=== PATIENT | female | born 1990 | race Caucasian/White ===

== ENCOUNTER 2018-10-29 06:35 | Emergency (ER) | payer OTHER ==
[~2018-10-29] VITALS: Ht 157.5 cm; Wt 68.0 kg
[~2018-10-29 06:35] MED LIST: ALBU90OI; ALBU90OI INH; ALBU90OI6 INH; ALBU90OI61 INH; ALPR.5 PO; AMOX250 PO; AMOX500 PO; AZIT250 PO; AZIT500 PO; Amoxicillin500 MG PO; BENZ100A PO; CIPR500 PO; CODGUAEL PO; DOCU100 PO; DOXY100 PO; FLUSAL2505; FLUSAL2505 IH; FLUT110OIA INH; HYDACE5 PO; IBUP800 PO; Naprosyn500 MG PO; ONDA4 PO; OXYACE5T PO; PENVK500 PO; PHENA200 PO; PRED10 PO; PRED20 PO; PROM25 PO; PSEU120ER PO; Prednisone20 MG PO; SERT25 PO; SPACER IH; SULTRIDS PO; Sudogest60 MG PO; TRAZ50 PO; TYLENOL COLD; Ultram50 MG PO; VENL75ER PO; VITAMINS; Veetids 500500 MG PO; Verotin-Gr Cap1 EACH PO
[2018-10-29] MEDS ORDERED: GABA100 (07:31)
[2018-10-29] MEDS ORDERED: HYDR1TAB94 (07:31)
[2018-10-29] MEDS ORDERED: ONDA4ODT MM (08:48)
== END 2018-10-29 09:19 | disposition home or self-care (01) ==
LOC: ER 06:35
DX: F41.9 Anxiety disorder, unspecified (principal); R11.2 Nausea with vomiting, unspecified; F31.9 Bipolar disorder, unspecified; Z79.899 Other long term (current) drug therapy; Z79.891 Long term (current) use of opiate analgesic
CPT/HCPCS: 99283

== ENCOUNTER 2020-01-01 08:28 | Day surgery (SDC) | payer OTHER ==
[~2020-01-01] VITALS: Ht 157.5 cm; Wt 70.0 kg
[~2020-01-01 08:28] MED LIST changes: +GABA100 PO; +Norco 10-325 T1 EACH PO; +ONDA4ODT MM
[2020-01-01] MEDS ORDERED: Afeditab Cr30 MG PO (15:02)
--- NOTE | 2020-01-01 15:49 | NUR ---
DISCHARGE PT AMBULATES TO RESTROOM WITH NO COMPLICATIONS. GROIN SITE STABLE WITH NO BLEEDING, OOZING OR HEMATOMA NOTED. PT DOES HAVE TENDERNESS AT SITE WHICH IS UNCHANGED. VSS. PT STATES HER UNDERSTANDING OF DISCHARGE AND SITE CARE INSTRUCTIONS AND DENIES ANY QUESTIONS OR CONCERNS. IV DCD WITH CATH IN TACT. PT TAKEN TO EXIT VIA WHEELCHAIR.
== END 2020-01-01 16:00 | disposition home or self-care (01) ==
LOC: MHTC 08:28
DX: I70.212 Atherosclerosis of native arteries of extremities with intermittent claudication, left leg (principal); J45.909 Unspecified asthma, uncomplicated; F41.9 Anxiety disorder, unspecified; F32.9 Major depressive disorder, single episode, unspecified; Z79.899 Other long term (current) drug therapy
CPT/HCPCS: 36247; 75625; 75716; 75774; 99152; 99153; C1760; C1769; C1887; C1894; J1644; J2250; J3010; J7030; Q9967

== ENCOUNTER → 2020-07-02 | Outpatient (CLI) | payer OTHER ==
[~2020-07-02] MED LIST changes: +Afeditab Cr30 MG PO
[2020-07-07 13:08] LABS: CHLAMYDIA TRACHOMATIS, NAA Negative (Negative); NEISSERIA GONORRHOEAE, NAA Negative (Negative)
== END | disposition home or self-care (01) ==
LOC: LAB 18:26 → LAB SHORT 18:26
PROVIDERS: Obstetrics & Gynecology
DX: Z01.419 Encounter for gynecological examination (general) (routine) without abnormal findings (principal); Z11.3 Encounter for screening for infections with a predominantly sexual mode of transmission
CPT/HCPCS: 87491; 87591; G0123

== ENCOUNTER → 2020-12-16 | Outpatient (CLI) | payer OTHER | END | disposition home or self-care (01) | LOC: LAB SHORT 09:15 → LAB 09:15 | DX: O09.93 Supervision of high risk pregnancy, unspecified, third trimester (principal) | CPT/HCPCS: 87081; 87150 ==

== ENCOUNTER 2021-01-12 05:22 | Inpatient (IN) | payer OTHER ==
[~2021-01-12] VITALS: Ht 157.5 cm; Wt 97.5 kg
[~2021-01-12 05:22] MED LIST changes: +PRENATAL TABLE1 EAC2 PO
[2021-01-12 05:57] LABS: BASOPHILS ABSOLUTE AUTO 0.03 K/mm3 (0.00-0.23); BASOPHILS PERCENT AUTO 0 % (0-2); EOSINOPHILS ABSOLUTE AUTO 0.13 K/mm3 (0.00-0.68); EOSINOPHILS PERCENT AUTO 2 % (0-6); Hematocrit 32.1 % (33.0-51.0); Hemoglobin 10.3 g/dL (11.5-16.0); IMMATURE GRAN ABSOLUTE AUTO 0.03 K/mm3 (0.00-0.10); IMMATURE GRAN PERCENT AUTO 0 % (0-1); LYMPHOCYTES ABSOLUTE AUTO 2.12 K/mm3 (0.84-5.20); LYMPHOCYTES PERCENT AUTO 28 % (21-46); MONOCYTES ABSOLUTE AUTO 0.51 K/mm3 (0.16-1.47); MONOCYTES PERCENT AUTO 7 % (4-13); Mean Corpuscular HGB 24.3 pg (26.0-34.0); Mean Corpuscular HGB Conc 32.1 g/dL (31.5-36.5); Mean Corpuscular Volume 76 fL (80-100); Mean Platelet Volume 10.8 fL (9.1-12.4); NEUTROPHILS ABSOLUTE AUTO 4.88 K/mm3 (1.96-9.15); NEUTROPHILS PERCENT AUTO 63 % (41-73); Platelet Count 287 K/mm3 (150-400); RDW Coefficient Variation 14.1 % (11.7-14.2); RDW Standard Deviation 37.8 fL (35.1-46.3); Red Blood Cell Count 4.23 M/mm3 (3.80-5.20)
--- NOTE | 2021-01-12 08:12 | NUR ---
01/12/21 0812 Briana Mccray [id number] DELIVERY VIABLE FEMALE NFANT APGARS 9/9, WEIGHT 3890 GM, HEAD 14 INCHES, CHEST 14 INCHES, LENGTH 20 INCHES, CORD BLOOD COLLECTED FOR TYPE AND RH GIVEN TO Anne Marie FRASER RN
--- NOTE | 2021-01-12 08:20 | NUR ---
NB GIRL BORN BY [facility] 04/30.
--- NOTE | 2021-01-12 09:25 | NUR ---
ABDOMINAL DRESSING SATURATED AND OOZING. MD CALLED TO PACU, MEDIPORE DRESSING REMOVED, DR. EDEN HELD PRESSURE ON RIGHT SIDE OF INCISION WHICH WAS OOZING. PRESSURE DRESSING WITH ABD PADX2 AND FOAM TAPE APPLIED. ABD BINDER PLACED.
--- NOTE | 2021-01-12 18:39 | NUR ---
PT HAD RCS THIS AM, PRESSURE DRESSING IN PLACE, MEDICATED PER EMAR FOR PAIN, PICKERING IN PLACE DRAINING DARK YELLOW URINE ENCOURAGED PT TO INCREASE PO FLUIDS. WIIL REPORT TO CLARK BARROS.
[2021-01-13 05:43] LABS: Hematocrit 30.4 % (33.0-51.0); Hemoglobin 9.6 g/dL (11.5-16.0); Mean Corpuscular HGB 24.2 pg (26.0-34.0); Mean Corpuscular HGB Conc 31.6 g/dL (31.5-36.5); Mean Corpuscular Volume 77 fL (80-100); Mean Platelet Volume 10.5 fL (9.1-12.4); Platelet Count 267 K/mm3 (150-400); RDW Coefficient Variation 14.2 % (11.7-14.2); RDW Standard Deviation 39.2 fL (35.1-46.3); Red Blood Cell Count 3.96 M/mm3 (3.80-5.20); White Blood Cell Count 11.14 K/mm3 (4.00-11.30)
--- NOTE | 2021-01-13 11:18 | NUR ---
agree with student assessment with student entire time
--- NOTE | 2021-01-13 12:15 | NUR ---
PATIENT GOT UP WITH ASSISTANCE AND WAS ABLE TO VOID. PLACED A NEW BINDER THAT WAS A BETTER FIT ON HER. PATIENT IN PAIN AND GIVEN PAIN MEDICATION.
--- NOTE | 2021-01-13 17:05 | NUR ---
AGREE WITH STUDENT CARE, WITH OMID PRITCHARD ENTIRE SHIFT
--- NOTE | 2021-01-13 18:25 | NUR ---
AGREE WITH MACHO STUDENT NURSE ASSESSMENT AND CARE FOR THE DAY WITH HER FOR ENTIRE SHIFT
[2021-01-14] MEDS ORDERED: IBUP800 PO (10:44)
[2021-01-14] MEDS ORDERED: Percocet 5-3251 EACH PO (10:48)
--- NOTE | 2021-01-28 13:47 | NUR ---
LATE ENTRY UPDATED DELIVERY DATE & TIME FROM OR RECORD
== END 2021-01-14 11:25 | disposition home or self-care (01) | DRG 787 ==
LOC: BC 05:22
PROVIDERS: ADMIT Obstetrics & Gynecology
PROC: 6A550ZT Pheresis of Cord Blood Stem Cells, Single (ICD-10-PCS; 2021-01-12)
PROC: 10D00Z1 Extraction of Products of Conception, Low, Open Approach (ICD-10-PCS; principal; 2021-01-12 07:30)
DX: O34.211 Maternal care for low transverse scar from previous cesarean delivery (principal); O99.324 Drug use complicating childbirth; Z3A.39 39 weeks gestation of pregnancy; Z37.0 Single live birth; O16.5 Unspecified maternal hypertension, complicating the puerperium; O99.52 Diseases of the respiratory system complicating childbirth; J45.909 Unspecified asthma, uncomplicated; F12.90 Cannabis use, unspecified, uncomplicated; O99.344 Other mental disorders complicating childbirth; F41.9 Anxiety disorder, unspecified; F32.9 Major depressive disorder, single episode, unspecified; O99.214 Obesity complicating childbirth; E66.9 Obesity, unspecified; Z79.899 Other long term (current) drug therapy
CPT/HCPCS: 36415; 85025; 85027; 86850; 86900; 86901; 94760; A9270; J0690; J1885; J2370; J2405; J2590; J2765; J3010; J3360; J7120

== ENCOUNTER 2021-01-18 22:58 | Emergency (ER) | payer OTHER ==
[~2021-01-18] VITALS: Ht 157.5 cm; Wt 95.2 kg
[~2021-01-18 22:58] MED LIST changes: +Percocet 5-3251 EACH PO
== END 2021-01-19 01:22 | disposition home or self-care (01) ==
LOC: ER 22:58
DX: O90.0 Disruption of cesarean delivery wound (principal)
CPT/HCPCS: 99282; A9270

== ENCOUNTER → 2022-12-16 | Outpatient (CLI) | payer OTHER | END | disposition home or self-care (01) | LOC: LAB SHORT 11:20 | DX: Z34.91 Encounter for supervision of normal pregnancy, unspecified, first trimester (principal) | CPT/HCPCS: 84702 ==

== ENCOUNTER → 2023-04-04 | Outpatient (CLI) | payer OTHER ==
[2023-04-05 11:24] LABS: Candida species (DNA Probe) Positive (NEGATIVE); G. vaginalis (DNA Probe) Positive (NEGATIVE); T. vaginalis (DNA Probe) Negative (NEGATIVE)
== END ==
LOC: LAB 17:15 → LAB SHORT 17:15
PROVIDERS: Obstetrics & Gynecology
DX: N89.8 Other specified noninflammatory disorders of vagina (principal)
CPT/HCPCS: 87480; 87510; 87660

== ENCOUNTER → 2023-08-27 | Outpatient (CLI) | payer OTHER | END | disposition home or self-care (01) | LOC: LAB SHORT 16:22 → LAB 16:22 | DX: N39.0 Urinary tract infection, site not specified (principal) | CPT/HCPCS: 87086 ==

== ENCOUNTER → 2023-08-27 | Outpatient (CLI) | payer OTHER ==
[2023-08-28 10:15] LABS: Candida species (DNA Probe) Negative (NEGATIVE); G. vaginalis (DNA Probe) Positive (NEGATIVE); T. vaginalis (DNA Probe) Negative (NEGATIVE)
[2023-08-30 19:23] LABS: APTIMA MEDIA TYPE Unisex Swab; C. TRACHOMATIS BY TMA Negative (Negative); N. GONORRHOEAE BY TMA Negative (Negative); SPECIMEN SOURCE Cervical
[2023-08-31 01:41] LABS: HSV 1 SUBTYPE BY PCR Detected; HSV 2 SUBTYPE BY PCR Not Detected; HSV SUBTYPE SOURCE VAGINAL
== END | disposition home or self-care (01) ==
LOC: LAB SHORT 14:25 → LAB 14:25
PROVIDERS: Physician Assistant
DX: R10.2 Pelvic and perineal pain (principal)
CPT/HCPCS: 87480; 87491; 87510; 87529; 87591; 87660